=== PATIENT | female | born 1995 | race Asian ===

== ENCOUNTER 2020-07-13 11:17 | Emergency (ER) | payer OTHER, SELFPAY ==
[2020-07-13 11:39] VITALS: BP 120/81; BP 125/80; PULSE 78; PULSE 85; RESP 16; TEMP 36.8; O2SAT 100; BMI 19.5
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
== END 2020-07-13 12:02 | disposition home or self-care (01) ==
PROVIDERS: Emergency Provider Emergency Medicine
DX: S80.12XA Contusion of left lower leg, initial encounter (principal); S80.11XA Contusion of right lower leg, initial encounter; S89.91XA Unspecified injury of right lower leg, initial encounter; S80.812A Abrasion, left lower leg, initial encounter; S80.811A Abrasion, right lower leg, initial encounter; V43.52XA Car driver injured in collision with other type car in traffic accident, initial encounter; Y93.9 Activity, unspecified; Y92.410 Unspecified street and highway as the place of occurrence of the external cause; Y99.9 Unspecified external cause status; Z79.899 Other long term (current) drug therapy
CPT/HCPCS: 99283